=== PATIENT | male | born 1985 | race Caucasian/White ===

== ENCOUNTER 2023-09-02 17:14 | Emergency (ER) | payer SELFPAY ==
[~2023-09-02] VITALS: Ht 175.3 cm; Wt 84.0 kg
[2023-09-02 17:18] VITALS: BP 161/121; PULSE 104; RESP 18; TEMP 97.1; O2SAT 100
== END 2023-09-02 18:14 | disposition left against medical advice (07) ==
LOC: ER 17:14
DX: F10.129 Alcohol abuse with intoxication, unspecified (principal); Z53.21 Procedure and treatment not carried out due to patient leaving prior to being seen by health care provider; Y90.9 Presence of alcohol in blood, level not specified
CPT/HCPCS: 93005; 99281